=== PATIENT | female | born 1995 | race African-American/Black ===

== ENCOUNTER 2016-05-05 10:49 | Emergency (ER) | payer OTHER ==
[2016-05-05 11:55] LABS: Hematocrit 36 % (35-47); Hemoglobin 11.7 g/dl (12.0-16.0); Mean Corpuscular HGB Conc 32 g/dl (31-36); Mean Corpuscular Hemoglobin 29 pg (27-31); Mean Corpuscular Volume 88 fL (80-97); Mean Platelet Volume 8 um3 (7.4-10.4); Red Blood Count 4.11 10^6/ul (4.0-5.4); Red Cell Distribution Width 14 % (10.5-15); White Blood Count 7.1 10^3/ul (3.5-10.8)
--- NOTE | 2016-05-05 12:12 | RAD ---
Indication: Sharp pain in the back of the head. Tremors, dysarthria. Comparison: None. Technique: Noncontrast CT vertex of skull through foramen magnum. Report: The sulci, ventricles, and basal cisterns are normal for age. Chaidez matter white matter differentiation is preserved without evidence for edema. No intra or extra axial hemorrhage, mass, or fluid collection detected. Indolent ossification along the anterior interhemispheric falx. Unremarkable orbital contents. Unremarkable calvarium and skull base. Unremarkable scalp. The visualized paranasal sinuses and mastoid air spaces are clear. IMPRESSION: No acute intracranial process evident.
[2016-05-05 12:14] LABS: Albumin 3.9 g/dL (3.2-5.2); BUN/Creatinine Ratio 10.1 (8-20); Calcium 9.3 mg/dL (8.6-10.3); EGFR African American 118.1 (>60); EGFR Non-African American 91.9 (>60); Globulin 3.8 g/dL (2-4); Potassium 3.6 mmol/L (3.5-5.0); Total Bilirubin 0.4 mg/dL (0.2-1.0); Total Protein 7.7 g/dL (6.4-8.9)
[2016-05-05 12:39] LABS: TSH (Thyroid Stimulating Horm) 1.36 mcIU/mL (0.34-5.60)
[2016-05-05 12:56] LABS: Urine Bilirubin Negative (Negative); Urine Glucose Negative (Negative); Urine Nitrite Negative (Negative)
[2016-05-05 13:28] LABS: Benzodiazepine Urine Screen None Detected (None Detect)
--- NOTE | 2016-05-05 15:50 | RAD ---
HISTORY: Weakness COMPARISONS: Head CT dated May 05, 2016 TECHNIQUE: The following sequences were obtained of the head: Sagittal T1-weighted images, axial T2-weighted images, axial FLAIR images, axial susceptibility weighted images, axial T1-weighted images. Additionally, axial diffusion-weighted images were obtained with calculated apparent diffusion coefficients. FINDINGS: HEMORRHAGE/INFARCT: There is no hemorrhage or acute infarct. MASSES/SHIFT: There is no mass or shift. EXTRA-AXIAL SPACES/MENINGES: There are no extra-axial fluid collections. SULCI AND VENTRICLES: The sulci and ventricles are normal in size and position for the patient's stated age. CEREBRUM: There are no focal parenchymal abnormalities. BRAINSTEM: There are no focal parenchymal abnormalities. CEREBELLUM: There are no focal parenchymal abnormalities. The cerebellar tonsils are normal in size and position. SELLA: The sella is normal. PINEAL: The pineal region is clear. CP ANGLE/TEMPORAL BONES: The labyrinthine structures are grossly normal. VESSELS: Normal flow-voids are noted within the visualized vertebral vasculature. DIFFUSION ABNORMALITIES: There are no diffusion abnormalities. PARANASAL SINUSES/MASTOIDS: The paranasal sinuses are clear. ORBITS: The orbits are unremarkable. BONES AND SOFT TISSUE: No bone or soft tissue abnormalities are noted. OTHER: None IMPRESSION: NORMAL BRAIN
[2016-05-05 17:24] VITALS: BP 115/61
--- NOTE | 2016-05-05 18:18 | CONS ---
NEUROLOGY CONSULTATION: DATE OF CONSULT: 05/05/16 LOCATION: The patient is in the emergency department. REQUESTING PHYSICIAN: Ke Salgado MD REASON FOR CONSULT: Headaches and body jerking. HISTORY OF PRESENT ILLNESS: Cora Ruiz is a 20-year-old woman with a history of headaches as well as a reported history of childhood seizures, who presented to the emergency department with an increase in occipital head pain, as well as body jerking and speech difficulties. She has also been feeling off balance for the past several days. She is accompanied by her friend and roommate, Trina , who contributed somewhat to the history. Cora reports that she began having occipital head pains about 3 or 4 days ago. She has had these in the past, but now they have been accompanied by some body jerking, which began about 2 days ago and involves her abdomen and she says it is uncomfortable but not painful. This jerking sometimes interrupts her speech and she states she is fighting the urge to be in the position. In addition to these occipital head pains, she has a history of frequent headaches , which are sometimes unilateral on the right or the left or can be bifrontal or occipital. These are associated with light and sound sensitivity as well as nausea, but she rarely vomits. She will often want to be in a dark quiet room. She was taking Excedrin frequently for these, but her mother expressed concern and so now she no longer takes much of anything for her headaches. In addition, she describes a past history of seizures, which began when she was 1. She says when she was older, approximately age 6 or 7, she recalls feeling like she was in a nightmare that she could not wake up from, but her family says that she would have eye rolling and whole body shaking with her seizures. She was on Tegretol from age 1 until age 10 or 11 and has not had a seizure since being off the medication. She reports "accelerated brain waves" but denies being diagnosed with epilepsy and expresses the desire to have an EEG here today due to her body jerking and her head pains, and her fear that this could be a precursor to a seizure. 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 She has stress related to school, but denies any recent acute stressors. She has not been ill with any viruses or infections recently. She denies any vision changes. She describes some dizziness which has been occurring more so over the past 4 days, but she has also had this in the past and describes it more as a lightheaded sensation. Neurology consultation was requested due to her head pains as well as her abnormal body movements. PAST MEDICAL HISTORY: She reports having some gluten sensitivity, also some stomach troubles and possibly an ulcer in the past. She also describes having "untreated pneumonia" 2 years ago. HOME MEDICATIONS: None. ALLERGIES: No known drug allergies. SOCIAL HISTORY: She is a student at [employer] and is originally from [place]. REVIEW OF SYSTEMS: As per the HPI, otherwise negative. PHYSICAL EXAM: Vital Signs: Temperature 97.4, blood pressure 127/80, heart rate 74, and oxygen saturation 100% on room air. On general examination, she is in no acute distress. She frequently speaks with her eyes closed. She appears somewhat tired. She has frequent body jerks involving her abdomen and when lying on her left side involves the right arm and leg as well. She seems to flex at the waist with these body jerks and they occur at irregular intervals and when they occur, they briefly interrupt her speech. These movements are distractible and do not occur during the neurologic exam, but mostly occur when she is lying giving the history. Her heart is in a regular rate and rhythm with no murmurs, rubs, or gallops. The lungs are clear to auscultation bilaterally. On neurologic examination, she is fully awake, alert, and oriented. Her speech is clear without aphasia, although she had difficulty recalling the word hammock on the stroke cards. As mentioned, her speech is occasionally halting related to these body jerks. On cranial nerve testing, pupils are equal, round and reactive from 4 to 3 mm bilaterally. Versions are full without nystagmus and visual pak are full to confrontation. Facial sensation and musculature is full and symmetric. Hearing is intact to finger rub. The palate elevates symmetrically and the tongue is midline. Shoulder shrug is full and symmetric. On motor examination, she has got normal bulk and tone in the upper and lower extremities. She has some inconsistent effort on her strength exam and some giveaway weakness on the right, but when encouraged, her strength is full proximally and distally in the upper and lower extremities. Sensation is intact to light touch in the upper and lower extremities. Reflexes are 2+ throughout the upper and lower extremities with downgoing toes. [id number] and [id number] is intact without ataxia. Romberg is negative. Her gait is narrow based and cautious, but not pathologically abnormal. DIAGNOSTIC STUDIES/LAB DATA: Laboratory data reviewed includes a CBC which is notable only for a slightly low hemoglobin of 11.7 and monocyte percentage of 11.4. Her CMP is normal including a TSH of 1.36. Urinalysis shows 1+ ketones and her urine tox screen was negative. A brain CT was personally reviewed and showed no abnormal parenchymal signal, but there were two areas of calcification on the anterior falx. 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 Her body jerking on examination is distractible and I do not suspect it is epileptic in nature. However, given her history of epilepsy, I will obtain an EEG here in the emergency department today. I also recommended an MRI scan of the brain without contrast given her headaches with change in character and associated neurologic signs. These symptoms may be primarily related to the stress she is under at school, but I think it is worthwhile getting the above testing. Further disposition is pending this testing. Thank you for this consultation. [id number]/ALBINA #: [id number] CARA
--- NOTE | 2016-05-06 05:30 | EEG ---
ELECTROENCEPHALOGRAPHY: DATE OF STUDY: 05/05/16 - The patient is in the emergency department. REQUESTING PHYSICIAN: Katalina Soriano MD CLINICAL PROBLEM: This is a 20-year-old woman with a reported history of childhood epilepsy. Starting Monday, she has had sharp pains in the back of her head associated with full body twitching. EEG is requested to evaluate for epileptiform abnormalities. MEDICATIONS: No home medications. REPORT: The waking background showed appropriate organization with clearly defined anterior to posterior voltage and frequency gradient. There was a well- defined posterior dominant rhythm of 10 Hz which was symmetrical and showed normal reactivity. Anteriorly, there was an expected pattern of lower voltage, irregular, mixed faster frequencies. Attenuation of the occipital rhythm accompanied drowsiness. The sleep background was appropriately organized with well-developed sleep spindles and vertex waves. The sleep transient showed appropriate morphology and were bilaterally synchronous and symmetrical. Throughout the recording, the patient had many episodes of whole body jerks which did not have any EEG correlates. Throughout the recording, there were no epileptiform discharges, focal features , paroxysmal features or significant interhemispheric asymmetries. CLINICAL IMPRESSION: This is a normal waking and sleep EEG. There are no epileptiform abnormalities. The body jerks observed during the recording are nonepileptic in nature. [id number]/CPS #: [id number] [facility]
== END 2016-05-05 17:24 | disposition home or self-care (01) ==
LOC: ED 10:49
DX: G44.209 Tension-type headache, unspecified, not intractable (principal)
CPT/HCPCS: 36415; 70450; 70551; 80053; 80307; 81003; 83605; 84443; 85025; 95816; 99282